=== PATIENT | female | born 1975 | race African-American/Black ===

== ENCOUNTER 2021-10-12 19:53 | Inpatient (IN) | payer SELFPAY ==
[2021-10-12 20:31] LABS: #Monocytes 0.3 10x3/uL (0.0-1.1); #Neutrophils 3.9 10x3/uL (1.5-8.4); %Basophils 0.5 % (0.0-2.0); %Eosinophils 0.2 % (0.0-6.0); %Lymphocytes 23.5 % (18.0-47.0); %Monocytes 5.5 % (0.0-10.0); %Neutrophils 69.9 % (40.0-75.0); Hemoglobin 8.4 g/dL (12.0-15.5); Mean Corpuscular HGB CONC 32.3 g/dL (32.0-36.0); Mean Corpuscular Hemoglobin 31.9 pg (27.0-33.0); Mean Corpuscular Volume 98.9 fl (81.6-98.3); Mean Platelet Volume 11.9 fl (7.4-10.4); Platelet Count 202 10x3/uL (150-450); RBC Distribution Width 13.6 % (11.5-14.5); Red Blood Cell (RBC) Count 2.63 10x6/uL (3.90-5.03); White Blood Cell (WBC) Count 5.6 10x3/uL (3.5-10.5)
[2021-10-12 20:47] LABS: ALT (SGPT) 66 U/L (8-55); AST (SGOT) 38 U/L (5-34); Albumin 3.4 g/dL (3.5-5.0); Alkaline Phosphatase 199 U/L (40-110); Anion Gap 13 mmol/L (10-20); BUN (Urea Nitrogen) 31 mg/dL (7.0-18.7); Bilirubin, Total 1.3 mg/dL (0.2-1.2); Calc. Creatinine Clearance 0 mL/min (70-130); Calcium 8.6 mg/dL (7.8-10.44); Carbon Dioxide 17 mmol/L (22-29); Chloride 110 mmol/L (98-107); Globulin 3.8 g/dL (2.4-3.5); Glucose 146 mg/dL (70-105); Potassium 3.8 mmol/L (3.5-5.1); Protein, Total 7.2 g/dL (6.0-8.3); Sodium 136 mmol/L (136-145)
[2021-10-12 21:09] LABS: CKMB 1.5 ng/mL (0-6.6)
[2021-10-12] MEDS ORDERED: cefTRIAXone\\ROCEPHIN 2 GM VIAL ONE (21:10)
[2021-10-12] MEDS ORDERED: Magnesium 2 GM/50 ML BAG (IN WATER) ONE (21:10)
[2021-10-12] MEDS ORDERED: Ventolin HFA Inhaler 60 PUFF INHALER ONE (21:10)
[2021-10-12] MEDS ORDERED: predniSONE 20 MG TAB ONE ×2 (21:10→21:17)
[2021-10-12] MEDS ORDERED: Ondansetron PF 4 MG/2 ML Vial ONE (21:31)
[2021-10-12 21:48] LABS: SARS-CoV-2 NAA Rapid Test Not Detected (NotDetected)
[2021-10-12] MEDS ORDERED: Azithromycin 500 MG VIAL ONE (22:18)
[2021-10-12] MEDS ORDERED: Dextrose 50% Abboject 50 ML SYRINGE SLOW IVP PRN (23:27)
[2021-10-12] MEDS ORDERED: Dextrose 5% in Water 1,000 ML IV PRN (23:27)
[2021-10-12] MEDS ORDERED: guaiFENesin ER 600 MG TAB PO SCH (23:45)
[2021-10-12] MEDS ORDERED: Amlodipine 5 MG TAB PO SCH (23:45)
[2021-10-13 00:12] LABS: BHCG - Serum Negative (NEGATIVE); Pregs Control Background? CLEAR/WHITE (CLR/WHITE); Pregs Control Bar Appear? YES (CONTROL BAR)
[2021-10-13 00:13] LABS: Magnesium 2.2 mg/dL (1.6-2.6)
[2021-10-13 00:15] LABS: Hemoglobin 7.9 g/dL (12.0-15.5); Platelet Count 204 10x3/uL (150-450)
[2021-10-13 00:18] VITALS: BMI 29.2
[2021-10-13] MEDS ORDERED: Heparin 25,000 units/D5W 500 ML IVPB SCH (00:30)
[2021-10-13] MEDS: Sodium Chloride 0.9% 1,000 ML IV SCH ×3 (00:52→20:21)
[2021-10-13] MEDS: HYDROcodone/Acetaminophen 5/325 mg Tablet PO PRN (00:53)
[2021-10-13] MEDS: Heparin 10,000 UNITS/ 10 ML VIAL SLOW IVP SCH ×2 (01:01→16:11)
[2021-10-13 02:15] LABS: Legionella Urinary Ag Negative (Negative); Strep pneumo Urine Ag POSITIVE (NEGATIVE)
[2021-10-13] MEDS: Promethazine 25 MG TAB PO PRN ×4 (04:25→23:19)
[2021-10-13 04:28] LABS: #Monocytes 0.2 10x3/uL (0.0-1.1); #Neutrophils 5.4 10x3/uL (1.5-8.4); %Basophils 0.3 % (0.0-2.0); %Lymphocytes 8.4 % (18.0-47.0); %Monocytes 3.1 % (0.0-10.0); %Neutrophils 87.7 % (40.0-75.0); Hemoglobin 7.7 g/dL (12.0-15.5); Mean Corpuscular HGB CONC 32.2 g/dL (32.0-36.0); Mean Corpuscular Hemoglobin 31.7 pg (27.0-33.0); Mean Corpuscular Volume 98.4 fl (81.6-98.3); Platelet Count 199 10x3/uL (150-450); RBC Distribution Width 13.7 % (11.5-14.5); Red Blood Cell (RBC) Count 2.43 10x6/uL (3.90-5.03); White Blood Cell (WBC) Count 6.2 10x3/uL (3.5-10.5)
[2021-10-13 04:45] LABS: Anion Gap 15 mmol/L (10-20); BUN (Urea Nitrogen) 32 mg/dL (7.0-18.7); Calc. Creatinine Clearance 35 mL/min (70-130); Carbon Dioxide 14 mmol/L (22-29); Chloride 110 mmol/L (98-107); Glucose 367 mg/dL (70-105); Potassium 4.2 mmol/L (3.5-5.1); Sodium 135 mmol/L (136-145)
[2021-10-13] MEDS ORDERED: HumaLOG 300 UNITS/3 ML VIAL SC SCH (04:45)
[2021-10-13] MEDS ORDERED: Lantus 1000 UNITS/10 ML VIAL SC SCH (04:45)
[2021-10-13 04:49] LABS: Troponin I 0.051 ng/mL (< 0.028)
[2021-10-13] MEDS: guaiFENesin ER 600 MG TAB PO SCH ×2 (08:40→20:21)
[2021-10-13] MEDS: Amlodipine 10 MG TAB PO SCH (08:40)
[2021-10-13 08:42] LABS: PTT 93.6 sec (22.0-33.0)
[2021-10-13] MEDS: HYDROcodone/Acetaminophen 10/325 mg Tablet PO PRN ×2 (10:17→17:30)
[2021-10-13 10:18] LABS: Iron 15 ug/dL (50-170); Iron Binding Capacity, Total 225 mcg/dL (265-497)
[2021-10-13] MEDS: HumaLOG 300 UNITS/3 ML VIAL SC PRN (14:10)
[2021-10-13 14:43] LABS: SARS-CoV-2 PCR by NAA Not Detected (NotDetected)
[2021-10-13] MEDS ORDERED: Benzocaine (Dental) 20% Gel 30GM Jar TOP PRN (19:18)
[2021-10-13] MEDS ORDERED: diphenhydrAMINE 50 MG/ML VIAL IVP SCH (20:00)
[2021-10-13] MEDS: Heparin 5,000 UNITS/ML VIAL SC SCH (20:21)
[2021-10-13] MEDS: cefTRIAXone\\ROCEPHIN 2 GM in Sodium Chloride 0.9% 100 ML IVPB SCH (21:11)
[2021-10-13] MEDS ORDERED: cefTRIAXone\\ROCEPHIN 1 GM in Sodium Chloride 0.9% 100 ML IVPB SCH (22:00)
[2021-10-13] MEDS: Azithromycin 500 MG in Sodium Chloride 0.9% 250 ML 250 ML IVPB SCH (22:37)
[2021-10-13] MEDS: Ondansetron PF 4 MG/2 ML Vial IVP PRN (23:53)
[2021-10-14] MEDS: Sodium Chloride 0.9% 1,000 ML IV SCH (06:33)
[2021-10-14 08:52] LABS: Magnesium 2.2 mg/dL (1.6-2.6); Phosphorus 2.3 mg/dL (2.3-4.7)
[2021-10-14] MEDS: Heparin 5,000 UNITS/ML VIAL SC SCH ×2 (08:55→20:41)
[2021-10-14] MEDS: guaiFENesin ER 600 MG TAB PO SCH ×2 (08:55→20:40)
[2021-10-14] MEDS: Ondansetron PF 4 MG/2 ML Vial IVP PRN (08:55)
[2021-10-14] MEDS: Amlodipine 10 MG TAB PO SCH (08:55)
[2021-10-14] MEDS: FLUoxetine HCl 10 MG CAP PO SCH (08:55)
[2021-10-14] MEDS: Gabapentin 300 MG CAP PO SCH ×3 (09:06→20:40)
[2021-10-14] MEDS: Lantus 1000 UNITS/10 ML VIAL SC SCH (09:07)
[2021-10-14 13:27] LABS: Hemoglobin A1c 6.5 % (4.0-6.0)
[2021-10-14] MEDS: Lactated Ringer's 1,000 ML IV SCH ×2 (13:33→20:42)
[2021-10-14] MEDS: HYDROcodone/Acetaminophen 5/325 mg Tablet PO PRN (13:51)
[2021-10-14] MEDS: hydrALAZINE 20 MG/ML VIAL SLOW IVP PRN (13:57)
[2021-10-14] MEDS: Albuterol Sulfate 2.5 mg/3 ml Neb NEB SCH ×4 (15:42→23:35)
[2021-10-14] MEDS ORDERED: methylPREDNISolone Sod Succ/PF 125 MG/2 ML VIAL IVP SCH (18:00)
[2021-10-14] MEDS ORDERED: Budesonide 0.25 MG/2 ML NEB INH SCH (18:30)
[2021-10-14] MEDS ORDERED: Mometasone 100 MCG/PUFF (1 INHALER) INH SCH (20:30)
[2021-10-14] MEDS: Pantoprazole 40 MG VIAL IVP SCH (20:38)
[2021-10-14] MEDS: Atorvastatin Calcium 40 MG TAB PO SCH (20:40)
[2021-10-14] MEDS: hydrALAZINE 10 MG TAB PO SCH (20:41)
[2021-10-14] MEDS ORDERED: diphenhydrAMINE 50 MG/ML VIAL IVP SCH (20:45)
[2021-10-14] MEDS ORDERED: Promethazine HCl 12.5 MG in Sodium Chloride 0.9% 50 ML IVPB SCH (20:45)
[2021-10-14 21:13] LABS: Bilirubin Neg (Negative); Blood, Urine 25 (Negative); Clarity Clear (Clear); Glucose, Urine (Dipstick) Normal (Negative); Ketone, Urine Negative (Negative); Leukocyte 500 (Negative); Nitrite Negative (Negative); Protein, Urine (Dipstick) 100 mg/dl (Neg-Trace)
[2021-10-14 21:19] LABS: Bacteria/HPF Rare-Few HPF (None Seen)
[2021-10-14] MEDS: cefTRIAXone\\ROCEPHIN 2 GM in Sodium Chloride 0.9% 100 ML IVPB SCH (21:25)
[2021-10-14] MEDS: Promethazine 25 MG TAB PO PRN (21:28)
[2021-10-14] MEDS: Azithromycin 500 MG in Sodium Chloride 0.9% 250 ML 250 ML IVPB SCH (23:05)
[2021-10-14 23:48] LABS: Hemoglobin 7.8 g/dL (12.0-15.5); Platelet Count 243 10x3/uL (150-450)
[2021-10-15] MEDS: methylPREDNISolone Sod Succ 40 MG VIAL IVP SCH ×5 (00:11→23:13)
[2021-10-15] MEDS: Ondansetron PF 4 MG/2 ML Vial IVP PRN ×4 (00:12→23:46)
[2021-10-15] MEDS: Albuterol Sulfate 2.5 mg/3 ml Neb NEB SCH ×6 (03:48→23:08)
[2021-10-15 04:27] LABS: Hemoglobin 7.5 g/dL (12.0-15.5); Mean Corpuscular HGB CONC 32.3 g/dL (32.0-36.0); Mean Corpuscular Hemoglobin 31.5 pg (27.0-33.0); Mean Corpuscular Volume 97.5 fl (81.6-98.3); Mean Platelet Volume 12.1 fl (7.4-10.4); Platelet Count 248 10x3/uL (150-450); RBC Distribution Width 14.9 % (11.5-14.5); Red Blood Cell (RBC) Count 2.38 10x6/uL (3.90-5.03); White Blood Cell (WBC) Count 6.9 10x3/uL (3.5-10.5)
[2021-10-15 04:35] LABS: Anion Gap 12 mmol/L (10-20); BUN (Urea Nitrogen) 29 mg/dL (7.0-18.7); Calc. Creatinine Clearance 38 mL/min (70-130); Calcium 7.7 mg/dL (7.8-10.44); Carbon Dioxide 15 mmol/L (22-29); Chloride 115 mmol/L (98-107); Glucose 229 mg/dL (70-105); Potassium 4.5 mmol/L (3.5-5.1); Sodium 137 mmol/L (136-145)
[2021-10-15 04:54] LABS: MDiff Complete? YES
[2021-10-15 04:55] LABS: Platelet Morphology Comment Appears Adequate; RBC Morphology Normal
[2021-10-15 04:58] LABS: Band 3 % (5-11); Lymphocytes 20 % (21-51); Monocytes 2 % (0-10); Neutrophil 75 % (42-75)
[2021-10-15] MEDS: Lactated Ringer's 1,000 ML IV SCH (05:32)
[2021-10-15] MEDS: HumaLOG 300 UNITS/3 ML VIAL SC PRN ×2 (05:33→17:00)
[2021-10-15] MEDS: Mometasone 100 MCG/PUFF (1 INHALER) INH SCH ×2 (08:33→19:27)
[2021-10-15] MEDS ORDERED: Sodium Bicarbonate 150 MEQ in Dextrose 5% in Water 1,000 ML IV SCH (09:00)
[2021-10-15] MEDS: Sodium Bicarbonate 75 MEQ in Dextrose 5% in Water 500 ML IV SCH ×2 (09:28→17:06)
[2021-10-15] MEDS: Heparin 5,000 UNITS/ML VIAL SC SCH ×2 (09:28→21:03)
[2021-10-15] MEDS: FLUoxetine HCl 10 MG CAP PO SCH (09:30)
[2021-10-15] MEDS: Ferrous Sulfate 325 MG TAB PO SCH (09:30)
[2021-10-15] MEDS: hydrALAZINE 10 MG TAB PO SCH ×2 (09:31→21:05)
[2021-10-15] MEDS: guaiFENesin ER 600 MG TAB PO SCH ×2 (09:31→21:04)
[2021-10-15] MEDS: Gabapentin 300 MG CAP PO SCH ×3 (09:31→21:05)
[2021-10-15] MEDS: Amlodipine 10 MG TAB PO SCH (09:31)
[2021-10-15] MEDS: Pantoprazole 40 MG VIAL IVP SCH ×2 (09:32→21:04)
[2021-10-15] MEDS: Lantus 1000 UNITS/10 ML VIAL SC SCH (09:32)
[2021-10-15] MEDS ORDERED: Dextrose 5% in Water 1,000 ML IV PRN (12:48)
[2021-10-15] MEDS ORDERED: Dextrose 50% Abboject 50 ML SYRINGE SLOW IVP PRN (12:48)
[2021-10-15] MEDS ORDERED: Lantus 1000 UNITS/10 ML VIAL SC SCH (12:49)
[2021-10-15] MEDS: HYDROcodone/Acetaminophen 5/325 mg Tablet PO PRN ×2 (16:49→23:37)
[2021-10-15] MEDS: diphenhydrAMINE 25 MG CAP PO PRN (18:38)
[2021-10-15] MEDS: cefTRIAXone\\ROCEPHIN 2 GM in Sodium Chloride 0.9% 100 ML IVPB SCH (21:04)
[2021-10-15] MEDS: Atorvastatin Calcium 40 MG TAB PO SCH (21:05)
[2021-10-15] MEDS: Promethazine 25 MG TAB PO PRN (21:15)
[2021-10-15] MEDS: Azithromycin 500 MG in Sodium Chloride 0.9% 250 ML 250 ML IVPB SCH (23:14)
[2021-10-16] MEDS: diphenhydrAMINE 25 MG CAP PO PRN ×2 (01:53→13:15)
[2021-10-16] MEDS: Albuterol Sulfate 2.5 mg/3 ml Neb NEB SCH ×6 (03:22→22:59)
[2021-10-16 05:02] LABS: Hemoglobin 7.8 g/dL (12.0-15.5); Mean Corpuscular HGB CONC 32.5 g/dL (32.0-36.0); Mean Corpuscular Hemoglobin 31.8 pg (27.0-33.0); Mean Platelet Volume 12.3 fl (7.4-10.4); Platelet Count 280 10x3/uL (150-450); RBC Distribution Width 14.7 % (11.5-14.5); Red Blood Cell (RBC) Count 2.45 10x6/uL (3.90-5.03); White Blood Cell (WBC) Count 11.9 10x3/uL (3.5-10.5)
[2021-10-16 05:04] LABS: Anion Gap 13 mmol/L (10-20); BUN (Urea Nitrogen) 33 mg/dL (7.0-18.7); Calc. Creatinine Clearance 36 mL/min (70-130); Calcium 7.9 mg/dL (7.8-10.44); Carbon Dioxide 19 mmol/L (22-29); Chloride 109 mmol/L (98-107); Glucose 281 mg/dL (70-105); Potassium 4.5 mmol/L (3.5-5.1); Sodium 136 mmol/L (136-145)
[2021-10-16 05:37] LABS: MDiff Complete? YES
[2021-10-16 05:38] LABS: Platelet Morphology Comment Appears Adequate; RBC Morphology Normal
[2021-10-16 05:41] LABS: Lymphocytes 19 % (21-51); Monocytes 2 % (0-10); Neutrophil 79 % (42-75)
[2021-10-16] MEDS: HumaLOG 300 UNITS/3 ML VIAL SC PRN ×2 (06:05→20:31)
[2021-10-16] MEDS: methylPREDNISolone Sod Succ 40 MG VIAL IVP SCH (06:05)
[2021-10-16] MEDS: FLUoxetine HCl 10 MG CAP PO SCH (08:34)
[2021-10-16] MEDS: Heparin 5,000 UNITS/ML VIAL SC SCH ×2 (08:34→20:30)
[2021-10-16] MEDS: hydrALAZINE 10 MG TAB PO SCH (08:34)
[2021-10-16] MEDS: Ferrous Sulfate 325 MG TAB PO SCH (08:34)
[2021-10-16] MEDS: Gabapentin 300 MG CAP PO SCH ×3 (08:34→20:29)
[2021-10-16] MEDS: Amlodipine 10 MG TAB PO SCH (08:35)
[2021-10-16] MEDS: guaiFENesin ER 600 MG TAB PO SCH ×2 (08:35→20:30)
[2021-10-16] MEDS: Pantoprazole 40 MG VIAL IVP SCH ×2 (08:35→20:30)
[2021-10-16] MEDS: Lantus 1000 UNITS/10 ML VIAL SC SCH (08:35)
[2021-10-16] MEDS: HYDROcodone/Acetaminophen 5/325 mg Tablet PO PRN (08:37)
[2021-10-16] MEDS ORDERED: predniSONE 20 MG TAB PO SCH (09:00)
[2021-10-16] MEDS ORDERED: hydrALAZINE 25 MG TAB PO SCH (09:00)
[2021-10-16] MEDS: Ondansetron PF 4 MG/2 ML Vial IVP PRN ×2 (09:35→18:26)
[2021-10-16] MEDS: Mometasone 100 MCG/PUFF (1 INHALER) INH SCH ×2 (09:50→19:38)
[2021-10-16] MEDS: hydrALAZINE 20 MG/ML VIAL SLOW IVP PRN (17:22)
[2021-10-16] MEDS ORDERED: diphenhydrAMINE 25 MG in Sodium Chloride 0.9% 50 ML IVPB SCH (17:45)
[2021-10-16] MEDS ORDERED: diphenhydrAMINE 50 MG/ML VIAL IVP SCH (19:15)
[2021-10-16] MEDS: Atorvastatin Calcium 40 MG TAB PO SCH (20:29)
[2021-10-16 23:40] LABS: Hemoglobin 7.8 g/dL (12.0-15.5); Platelet Count 344 10x3/uL (150-450)
[2021-10-17] MEDS ORDERED: Acetaminophen 325 MG TAB PO PRN (00:24)
[2021-10-17] MEDS: Albuterol Sulfate 2.5 mg/3 ml Neb NEB SCH ×2 (03:33→08:14)
[2021-10-17 05:04] LABS: Anion Gap 10 mmol/L (10-20); BUN (Urea Nitrogen) 38 mg/dL (7.0-18.7); Calc. Creatinine Clearance 35 mL/min (70-130); Calcium 7.7 mg/dL (7.8-10.44); Carbon Dioxide 19 mmol/L (22-29); Chloride 112 mmol/L (98-107); Glucose 163 mg/dL (70-105); Potassium 3.9 mmol/L (3.5-5.1); Sodium 137 mmol/L (136-145)
[2021-10-17] MEDS ORDERED: diphenhydrAMINE 25 MG CAP PO SCH (07:30)
[2021-10-17] MEDS ORDERED: traMADol HCl 50 MG TAB PO SCH (07:30)
[2021-10-17] MEDS: hydrALAZINE 20 MG/ML VIAL SLOW IVP PRN (07:41)
[2021-10-17] MEDS ORDERED: predniSONE 20 MG TAB PO SCH (08:00)
[2021-10-17] MEDS: Mometasone 100 MCG/PUFF (1 INHALER) INH SCH (08:14)
[2021-10-17] MEDS: guaiFENesin ER 600 MG TAB PO SCH (09:41)
[2021-10-17] MEDS: Gabapentin 300 MG CAP PO SCH (09:41)
[2021-10-17] MEDS: Amlodipine 10 MG TAB PO SCH (09:41)
[2021-10-17] MEDS: FLUoxetine HCl 10 MG CAP PO SCH (09:41)
[2021-10-17] MEDS: Lantus 1000 UNITS/10 ML VIAL SC SCH (09:42)
[2021-10-17] MEDS: Pantoprazole 40 MG VIAL IVP SCH (09:42)
[2021-10-17] MEDS: Heparin 5,000 UNITS/ML VIAL SC SCH (09:42)
[2021-10-17] MEDS: Ferrous Sulfate 325 MG TAB PO SCH (09:45)
[2021-10-17] MEDS: Ondansetron PF 4 MG/2 ML Vial IVP PRN (10:09)
[2021-10-17 12:14] VITALS: BP 147/80; TEMP 98.5
[2021-10-17] MEDS: Promethazine 25 MG TAB PO PRN (14:13)
== END 2021-10-17 15:54 | disposition home or self-care (01) | DRG 193 ==
LOC: CSHERS 19:53 → CSHTELE 19:54
PROVIDERS: ADMIT Family Medicine; ATTEND Internal Medicine
DX: J13 Pneumonia due to Streptococcus pneumoniae (principal); J96.01 Acute respiratory failure with hypoxia; J45.21 Mild intermittent asthma with (acute) exacerbation; N18.4 Chronic kidney disease, stage 4 (severe); N17.9 Acute kidney failure, unspecified; E87.1 Hypo-osmolality and hyponatremia; E87.2 Acidosis; I24.8 Other forms of acute ischemic heart disease; Z20.822 Contact with and (suspected) exposure to COVID-19; E11.40 Type 2 diabetes mellitus with diabetic neuropathy, unspecified; E78.5 Hyperlipidemia, unspecified; E11.649 Type 2 diabetes mellitus with hypoglycemia without coma; J12.3 Human metapneumovirus pneumonia; L29.9 Pruritus, unspecified; E11.22 Type 2 diabetes mellitus with diabetic chronic kidney disease; D63.1 Anemia in chronic kidney disease; D50.9 Iron deficiency anemia, unspecified; I12.9 Hypertensive chronic kidney disease with stage 1 through stage 4 chronic kidney disease, or unspecified chronic kidney disease; Z88.5 Allergy status to narcotic agent; Z88.8 Allergy status to other drugs, medicaments and biological substances; Z79.4 Long term (current) use of insulin; Z79.51 Long term (current) use of inhaled steroids; Z90.49 Acquired absence of other specified parts of digestive tract; Z90.89 Acquired absence of other organs
CPT/HCPCS: 0240U; 36415; 36416; 71045; 76770; 80048; 80053; 81001; 82553; 82728; 83036; 83540; 83550; 83605; 83735; 84100; 84145; 84484; 84703; 85014; 85018; 85025; 85049; 85379; 85730; 87040; 87070; 87205; 87449; 87633; 87798; 87899; 93005; 93010; 93306; 93970; 94664; 94760; 96365; 96366; 96368; C9113; J0360; J0456; J0696; J1200; J1644; J1815; J2405; J2920; J2930; J3475; J3490; J7050; J7070; J7120; J7512; J7611; J7620; Q0169; U0003; U0005

== ENCOUNTER 2024-05-08 19:36 | Emergency (ER) | payer OTHER ==
[2024-05-08 20:22] LABS: #Basophils 0.07 10x3/uL (0.0-0.2); #Monocytes 0.55 10x3/uL (0.0-1.1); #Neutrophils 3.61 10x3/uL (1.5-8.4); %Basophils 0.8 % (0.0-2.0); %Eosinophils 2.4 % (0.0-6.0); %Lymphocytes 46.9 % (18.0-47.0); %Monocytes 6.5 % (0.0-10.0); Hematocrit 33.7 % (34.9-44.5); Hemoglobin 11.2 g/dL (12.0-15.5); Mean Corpuscular HGB CONC 33.2 g/dL (32.0-36.0); Mean Corpuscular Hemoglobin 32.4 pg (27.0-33.0); Mean Corpuscular Volume 97.4 fL (81.6-98.3); Mean Platelet Volume 11.9 fL (7.4-10.4); Platelet Count 227 10x3/uL (150-450); RBC Distribution Width 13.2 % (11.5-14.5); Red Blood Cell (RBC) Count 3.46 10x6/uL (3.90-5.03); White Blood Cell (WBC) Count 8.4 10x3/uL (3.5-10.5)
[2024-05-08 20:34] LABS: ALT (SGPT) 17 U/L (8-55); AST (SGOT) 16 U/L (5-34); Albumin 3.4 g/dL (3.5-5.0); Alkaline Phosphatase 123 U/L (40-110); Anion Gap 16 mmol/L (10-20); BUN (Urea Nitrogen) 78 mg/dL (7.0-18.7); Bilirubin, Total 0.3 mg/dL (0.2-1.2); Calc. Creatinine Clearance 0 mL/min (70-130); Calcium 8.2 mg/dL (7.8-10.44); Carbon Dioxide 14 mmol/L (22-29); Chloride 110 mmol/L (98-107); Estimated GFR 10; Globulin 3.2 g/dL (2.4-3.5); Glucose 200 mg/dL (70-105); Potassium 4.2 mmol/L (3.5-5.1); Protein, Total 6.6 g/dL (6.0-8.3); Sodium 136 mmol/L (136-145)
[2024-05-08] MEDS ORDERED: Nitroglycerin 2% Ointment 1 INCH/1 GM Packet ONE (20:42)
[2024-05-08] MEDS ORDERED: Aspirin Chewable 81 MG TAB ONE (20:43)
[2024-05-08] MEDS ORDERED: Ventolin HFA Inhaler 60 PUFF INHALER ONE (20:59)
[2024-05-08 21:01] LABS: BHCG - Serum Negative (NEGATIVE); Pregs Control Background? CLEAR/WHITE (CLR/WHITE); Pregs Control Bar Appear? YES (CONTROL BAR)
[2024-05-08 21:03] LABS: Influenza A by NAA Not Detected (NotDetected); Influenza B by NAA Not Detected (NotDetected); SARS-CoV-2 NAA Rapid Test Not Detected (NotDetected)
[2024-05-08 21:43] LABS: Bilirubin Neg (Negative); Blood, Urine 25 (Negative); Clarity Clear (Clear); Glucose, Urine (Dipstick) Normal (Negative); Ketone, Urine Negative (Negative); Leukocyte 500 (Negative); Nitrite Negative (Negative); Protein, Urine (Dipstick) 100 mg/dl (Neg-Trace); Specific Gravity, Urine 1.015 (1.005-1.030); Urobilinogen Normal mg/dL (Less than 2)
[2024-05-08 21:51] LABS: Bacteria/HPF 4+ HPF (None Seen); CAUTI Indications for Culture Fever or rigors; RBC/HPF 0-3 HPF (0-3); Squamous Epithelial 0-3 HPF (0-3)
[2024-05-08 21:52] LABS: Mucous/LPF 1+ LPF (<2+); Urine Culture Reflex No No
[2024-05-08 22:05] LABS: Actual Bicarbonate (HCO3v) 14.5 mEq/L (22-28); Analyzer IN Cardio CS ER; Base Excess -10.7 mEq/L (-2 - +2); Calcium, Ionized (venous) 1.07 mmol/L (1.16-1.32); Chloride (VBG) 109 mmol/L (98-106); Critical Notified By: CP.PH; Hematocrit-VBG 35 % (36.0-47.0); Hemoglobin (Hb) 11.9 g/dL (11.7-16.0); Potassium (VBG) 4.22 mmol/L (3.70-5.30); Puncture Site Other Site; Sodium 140 mmol/L (133-146); pH (venous) 7.295 (7.32-7.43)
[2024-05-08] MEDS ORDERED: Cefdinir 300 MG CAP ONE (22:10)
[2024-05-08] MEDS ORDERED: Sodium Bicarb 50 MEQ/50 ML Abboject 8.4% SYRINGE ONE ×2 (22:33)
== END 2024-05-08 23:07 | disposition short-term general hospital (02) ==
LOC: CSHERS 19:36
DX: N17.9 Acute kidney failure, unspecified (principal); R06.00 Dyspnea, unspecified; R79.89 Other specified abnormal findings of blood chemistry; I10 Essential (primary) hypertension; E11.9 Type 2 diabetes mellitus without complications
CPT/HCPCS: 36415; 71045; 80053; 81001; 82805; 83880; 84484; 84703; 85025; 85379; 87086; 93005; 94664; 94760; 96374